=== PATIENT | male | born 1975 | race Caucasian/White ===

== ENCOUNTER 2017-08-01 10:17 | Emergency (ER) | payer SELFPAY ==
[~2017-08-01] VITALS: Ht 167.6 cm; Wt 86.0 kg
[2017-08-01] MEDS ORDERED: IBUPROFEN 800MG TABLET PO ONE (12:30)
[2017-08-01] MEDS ORDERED: TETANUS, DIPHTHERIA, PERTUSSIS VAC/PF 0.5ML (>7YR OLD) IM ONE (12:45)
[2017-08-01 13:06] VITALS: BP 146/99
== END 2017-08-01 13:39 | disposition home or self-care (01) ==
LOC: ER 10:37
DX: S91.104A Unspecified open wound of right lesser toe(s) without damage to nail, initial encounter (principal); W27.8XXA Contact with other nonpowered hand tool, initial encounter; Y93.89 Activity, other specified; Y92.89 Other specified places as the place of occurrence of the external cause; Z23 Encounter for immunization; R03.0 Elevated blood-pressure reading, without diagnosis of hypertension
CPT/HCPCS: 90471; 90715; 99283